=== PATIENT | male | born 1970 | race Caucasian/White ===

== ENCOUNTER → 2023-07-24 15:43 | Outpatient (REF) | payer BC, SELFPAY | LOC: PAVMRI 15:43 | PROVIDERS: ATTENDING PHYSICIAN Orthopaedic Surgery Adult Reconstructive Orthopaedic Surgery; FAMILY PHYSICIAN Internal Medicine | DX: M16.12 Unilateral primary osteoarthritis, left hip (principal) | CPT/HCPCS: 73721 ==

== ENCOUNTER 2023-11-24 04:31 | Observation (INO) | payer BC, SELFPAY ==
[2023-11-23 23:54] VITALS: BMI 28.7
[2023-11-23 23:58] VITALS: BP 115/59
[2023-11-24] VITALS (33 sets, daily range): BP systolic 88–118; BP diastolic 61–80; BMI 29.2
--- NOTE | 2023-11-24 00:08 | ED.GENMED ---
History of Present Illness
<MERYL Prado - Last Filed: 11/24/23 02:33>
General
Chief Complaint: Musculo-Skeletal Complaint
Source: patient
Exam Limitations: none
Time Seen by Provider: 11/23/23 23:56
History of Present Illness
History of Present Illness:
This is a 53 year old male that is brought in by ambulance with c/o left hip dislocation. States that he was getting ready for bed and his hip popped out. States that this also happened yesterday and he sat down and it popped back in. State that
this happened 4 weeks ago but again it popped in on its own. States that he had surgery on this hip 7 weeks ago and before he left the hospital it had popped out. Denies any fever, chills, chest pain, SOB, abd pain, nausea, vomiting, diarrhea,
headache, dizziness, urinary burning
Past History
<MERYL Prado - Last Filed: 11/24/23 02:33>
Past History
ED Past Medical History: HTN
ED Past Surgical History: Orthopedic (Right leg tib/Fib fractures. Left hip replacement) and Other (Dental implants)
Social History
Tobacco: Non-smoker
Alcohol: Occasional
Personal:
Living: with family
Employment: Employed
Review of Systems
<MERYL Prado - Last Filed: 11/24/23 02:33>
Review of Systems
All Other Systems: ROS reviewed and negative except as documented in HPI and ROS
Constitutional: Reports no symptoms; Denies fever or chills
EENT: Reports no symptoms
Respiratory: Reports no symptoms; Denies cough or trouble breathing
Cardiac: Reports no symptoms; Denies chest pain
ABD/GI: Reports no symptoms; Denies abdominal pain, nausea, vomiting or diarrhea
: Reports no symptoms; Denies dysuria, frequency or urgency
Musculoskeletal: Reports joint pain (Left hip dislocation)
Skin: Reports no symptoms
Neurological: Reports no symptoms; Denies dizzy or headache
Psychiatric: Reports no symptoms
Phy Exam
<MERYL Prado - Last Filed: 11/24/23 02:33>
General Physical Exam
General Presentation: moderate distress
General age: appears stated age
General Skin: warm and dry
General Habitus: normal
General Mental: alert
General Hydration: appears well hydrated
ENT Exam
ENT Exam: TM's normal, pharynx normal and neck supple
Eye Exam
Eye Exam: EOMI
Cardiovascular Exam
Cardiovascular Exam: regular rate/rhythm, no edema, no murmur and normal peripheral pulses
Pulmonary Exam
Pulmonary Exam: lungs clear, no respiratory distress, no rales, chest non tender, no crackles, no rhonchi, no wheezing and no cough
Gastrointestinal Exam
Gastrointestinal Exam: normal bowel sounds, non tender, soft, no organomegaly, no pulsatile mass and non distended
Musculoskeletal Exam
Musculoskeletal Exam: no edema and other (Left leg externally rotated. obvious dislocation)
Skin Exam
Skin Exam: normal color, warm/dry, no rash and no petechia
Psychiatric Exam
Psychiatric Exam: normal mood/affect
Course
<MERYL Prado - Last Filed: 11/24/23 02:33>
Orders/Labs/Results
Orders:
Orders
11/24/23 00:03
Comprehensive Metabolic Panel Urgent
11/24/23 00:05
Complete Blood Count/With Diff Urgent
HYDROmorphone [Dilaudid] 1 mg .ROUTE .STK-MED ONE
11/24/23 00:07
Hip, Left 1 View [CR Hip - LT without Pel 1 Vw] Urgent
Comment:
Reason For Exam: Hip dislocation
11/24/23 00:08
Propofol [Diprivan] 20 ml .ROUTE .STK-MED
11/24/23 00:09
Type+Screen Urgent
11/24/23 00:13
Fentanyl Citrate/Pf [Sublimaze] 100 mcg .ROUTE .STK-MED ONE
11/24/23 00:14
Fentanyl Citrate/Pf [Sublimaze] 100 mcg IV NOW STA
11/24/23 00:28
Hip, Left 1 View [CR Hip - LT without Pel 1 Vw] Urgent
Comment:
Reason For Exam: post reduction
11/24/23 00:42
ABO2 Urgent
BBK Wristband Number:
Associate notified that ABO2 has been ordered: [id number]
Date: 11/24/23
Time: 00:18
Jointer Machine ID: [id number]
11/24/23 00:48
Hip, Left 2-3 Views [CR Hip - LT w/wo Pel 2-3 Vw*] Urgent
Comment:
Reason For Exam: Hip pain
Include a pelvis x-ray?: No
11/24/23 01:13
ASA Classification Routine
Propofol [Diprivan] 200 mg IV NOW STA
11/24/23 01:14
Propofol [Diprivan] 20 ml .ROUTE .STK-MED
11/24/23 01:32
Hip, Left 1 View [CR Hip - LT without Pel 1 Vw] Urgent
Comment:
Reason For Exam: post reduction
Abnormal Lab Results
11/24/23 11/24/23
00:03 00:05
RBC 4.21 L 10^6/uL
(4.70-6.10)
Hct 38.4 L %
(39.0-52.0)
MCH 31.6 H pg
(27.0-31.0)
BUN 34 H mg/dl
(9-20)
Glucose 125 H mg/dl
(70-99)
Total Bilirubin 1.6 H mg/dl
(0.2-1.3)
11/24/23 00:05
11/24/23 00:03
Dehydration. Glucose nonfasting. total flavio slightly elevated.
Vital Signs
Initial and Last Documented VS:
Initial Vital Signs
Temp Pulse Resp BP Pulse Ox
98.1 F 96 23 115/59 98
11/23/23 23:58 11/23/23 23:58 11/23/23 23:58 11/23/23 23:58 11/23/23 23:58
Last Documented Vital Signs
Temp Pulse Resp BP Pulse Ox
98.0 F 97 16 93/61 97
11/24/23 01:40 11/24/23 01:40 11/24/23 01:40 11/24/23 01:40 11/24/23 01:40
Joãolt;Edgar Porras DO - Last Filed: 11/24/23 01:55>
Orders/Labs/Results
Orders:
Orders
11/24/23 00:03
Comprehensive Metabolic Panel Urgent
11/24/23 00:05
Complete Blood Count/With Diff Urgent
HYDROmorphone [Dilaudid] 1 mg .ROUTE .STK-MED ONE
11/24/23 00:07
Hip, Left 1 View [CR Hip - LT without Pel 1 Vw] Urgent
Comment:
Reason For Exam: Hip dislocation
11/24/23 00:08
Propofol [Diprivan] 20 ml .ROUTE .STK-MED
11/24/23 00:09
Type+Screen Urgent
11/24/23 00:13
Fentanyl Citrate/Pf [Sublimaze] 100 mcg .ROUTE .STK-MED ONE
11/24/23 00:14
Fentanyl Citrate/Pf [Sublimaze] 100 mcg IV NOW STA
11/24/23 00:28
Hip, Left 1 View [CR Hip - LT without Pel 1 Vw] Urgent
Comment:
Reason For Exam: post reduction
11/24/23 00:42
ABO2 Urgent
BBK Wristband Number:
Associate notified that ABO2 has been ordered: [id number]
Date: 11/24/23
Time: 00:18
Jointer Machine ID: [id number]
11/24/23 00:48
Hip, Left 2-3 Views [CR Hip - LT w/wo Pel 2-3 Vw*] Urgent
Comment:
Reason For Exam: Hip pain
Include a pelvis x-ray?: No
11/24/23 01:13
ASA Classification Routine
Propofol [Diprivan] 200 mg IV NOW STA
11/24/23 01:14
Propofol [Diprivan] 20 ml .ROUTE .STK-MED
11/24/23 01:32
Hip, Left 1 View [CR Hip - LT without Pel 1 Vw] Urgent
Comment:
Reason For Exam: post reduction
Abnormal Lab Results
11/24/23 11/24/23
00:03 00:05
RBC 4.21 L 10^6/uL
(4.70-6.10)
Hct 38.4 L %
(39.0-52.0)
MCH 31.6 H pg
(27.0-31.0)
BUN 34 H mg/dl
(9-20)
Glucose 125 H mg/dl
(70-99)
Total Bilirubin 1.6 H mg/dl
(0.2-1.3)
11/24/23 00:05
11/24/23 00:03
Vital Signs
Initial and Last Documented VS:
Initial Vital Signs
Temp Pulse Resp BP Pulse Ox
98.1 F 96 23 115/59 98
11/23/23 23:58 11/23/23 23:58 11/23/23 23:58 11/23/23 23:58 11/23/23 23:58
Last Documented Vital Signs
Temp Pulse Resp BP Pulse Ox
98.0 F 97 16 93/61 97
11/24/23 01:40 11/24/23 01:40 11/24/23 01:40 11/24/23 01:40 11/24/23 01:40
Procedures
<MERYL Prado - Last Filed: 11/24/23 02:33>
Moderate Sedation
ASA Risk Score: Class I
Chart and allergies reviewed: Yes
Consent for anesthesia obtained: Yes
Time out completed (validating right patient & procedure): Yes
Moderate Sedation Start Time(when first medication is given): 00:24
History of difficult intubation: No
Airway free of obstruction: Yes
Patient has a gag reflex: Yes
Patient is able to open mouth: Yes
Patient has no dentures: No
Patient has no loose teeth: No
Medication administered by Provider during Moderate Sedation: IV Propofol (mg)
Total dose administered: 140
Time drug administered: 00:25
Moderate Sedation Procedure End Time: 00:40
<MERYL Prado - Last Filed: 11/24/23 02:33>
MDM/Problems Addressed
Differential Diagnosis Includes:
Left hip dislocation
MDM/Problems Addressed:
This is a 53 year old male that comes in by ambulance with c/o left hip pain. States that he has surgery 7 weeks ago in [place] and the left hip has popped out several times and has popped back in on its own. This time it did not pop back in.
Dr. Porras with patient and will do conscious sedation. Consent signed.
Patient tolerate procedure well.Left hip was reduced and prostheses is in proper position. Patient to follow up with his surgeon in [place]. Knee immobilizer applied.
Patient continued to c/o discomfort. Sent over for Further x-rays. It remains displaced and appears superior to cup. Will attempt reduction again.
Moderate sedation started at 01:21 and Time out completed. First dose of mediation given at 01:22 of Propofol 100mg. Then at 01:24 patient given 40mg more and at 1:26 again another 40mg. At 01:28 patient was given 60mg more. at that time Prosthesis
went in. Repeat X-ray shows reduction is completed. End time is 1:40am.
Patient is unable to lift his leg off the bed. Patient has good pulses with normal capillary refill. Patient is moving his foot without difficulty. Will admit for further evaluation. Hospitalist notified.
Chronic conditions affecting care:
Left hip replacement
Acute Exacerbation and/or Progression of Chronic Illness:
Left hip Replacement
<MERYL Prado - Last Filed: 11/24/23 02:33>
*Radiology
Radiology exam reviewed: preliminary read by ED provider (Left hip= left hip dislocation. Left hip- dislocation reduced. Left hip 4 views- Prosthesis remains out. Repeat left hip- dislocation reduced. )
*Pulse Oximetry
Patient hypoxic: no
*EKG
Interpreted by ED Provider?: NA
Rate: EKG- N/A
*Critical Care Note
Total Time (30-74mins, 75-104mins- exclusive of procedures): Not Applicable
ED Attending Note
<MERYL Prado - Last Filed: 11/24/23 02:33>
-
Portions of this chart may have been created with voice recognition software.� Occasional wrong word or��sound alike� substitutions may have occurred due to the inherent limitations of voice recognition software.
<Edgar Porras DO - Last Filed: 11/24/23 01:55>
ED Attending Note
Patient seen and examined by attending physician: Yes
I performed a history and physical exam of patient and discussed management with resident, I reviewed resident's note and agree with documented findings and plan of care.: Yes
ED Attending Note:
I agree with Adina's note
Patient was getting into bed when he felt his left hip come out of place. Patient recently had his left hip replaced at the [facility] in [place]. Surgery occurred about 7 weeks ago. Patient states that in the perioperative
period he had a hip dislocation that was reduced. Since that time he has had. He felt like his hip was going out but popped back in.
General: Awake, Alert, Oriented X3. Uncomfortable due to left hip pain
Vitals: unremarkable
Head: Atraumatic
Eyes: Pupils equal, EOMI
Throat: Airway intact, no exudates, Mallampati score of 2
Neck: Trachea midline
Lungs: Clear and equal b/l
Heart: Regular rate, no murmurs
Neuro: Nonfocal
Skin: Warm, dry, no rash
Extremities: Left leg shortened, externally rotated, pulses equal b/l, no edema
Patient consented for procedural sedation and joint reduction. First attempted joint reduction resulted in the sensation of the hip moving into the joint with what appears to be anatomical positioning of the feet and ankles. Post reduction x-ray
showed better placement but was not convinced the hip position. Once the patient woke up he continued to have pain. He was sent for further views which demonstrated the hip was still dislocated. Patient sedated a second time and ultimately able
to feel a very satisfying clunk over the hip reducing. Repeat films were definitive. The joint was reduced. Given the frequent problems the patient is having with his left hip recommend he contact the surgeon tomorrow to discuss next steps. Will
discharge him in a knee immobilizer.
Discharge Plan
Departure
Patient Disposition: Admit
Date of Disposition: 11/24/23
Time of Disposition: 02:24
Admit to: Med/Surg
Presentation/result/management discussed w/ accepting MD/DO: Hospitalist
Patient with high blood pressure during this ER visit?: No
Condition: Good
Covid-19: Not Applicable
Discharge Problem:
S/P closed reduction of dislocated total hip prosthesis, Ambulatory dysfunction
Prescriptions:
No Action
labetalol 100 MG tablet
200 mg PO BID Qty: 30 0RF
Referrals:
Vamsi Roper MD [Family Provider] -
Interventions
Interventions:
*Risk Screen - Suicide Last Done: 11/23/23 23:55
*General Assessment Last Done: 11/23/23 23:55
*Neglect/Abuse Screening Last Done: 11/23/23 23:55
*ED COVID-19 Vaccine History Last Done: 11/23/23 23:55
Discharge Date and Time
Print Language: CHINESE
[2023-11-24] MEDS: SUBLIMAZE 100 MCG IV (00:14)
[2023-11-24 00:20] LABS: % Basophils 0.8 % (0-2); % Immature Granulocytes 0.3 % (0-0.5); % Lymphocytes 20.6 % (20.5-51.1); % Monocytes 6.7 % (1.7-9.3); % Neutrophils 69.6 % (42.2-75.2); Absolute Basophils 0.1 10^3/uL (0-0.2); Absolute Eosinophils 0.2 10^3/uL (0-0.7); Absolute Lymphocytes 1.6 10^3/uL (1.2-3.4); Absolute Monocytes 0.5 10^3/uL (0.1-0.6); Absolute Neutrophils 5.3 10^3/uL (1.4-6.5); Hematocrit 38.4 % (39.0-52.0); Hemoglobin 13.3 g/dL (13.0-18.0); Mean Corp Hgb Conc. 34.6 g/dL (33.0-37.0); Mean Corpuscular Hgb 31.6 pg (27.0-31.0); Mean Corpuscular Volume 91.2 fL (80.0-94.0); Mean Platelet Volume 9.5 fL (7.4-10.4); Nucleated Red Blood Cells % 0 % (-); Platelet Count 229 10^3/uL (130-400); Red Blood Cell Count 4.21 10^6/uL (4.70-6.10); Red Cell Dist. Width 13.5 % (11.5-14.5); White Blood Cell Count 7.7 10^3/uL (4.8-10.8)
[2023-11-24 00:31] LABS: ALT (SGPT) 21 U/L (0-50); AST (SGOT) 22 U/L (17-59); Albumin 4.3 g/dl (3.5-5.0); Alkaline Phosphatase 76 U/L (38-126); Blood Urea Nitrogen 34 mg/dl (9-20); Calcium 9.2 mg/dl (8.4-10.2); Carbon Dioxide 24 mmol/L (22-30); Chloride 105 mmol/L (98-107); Estimated Creatinine Clearance 101 ml/min; Glucose 125 mg/dl (70-99); Potassium 3.8 mmol/L (3.5-5.1); Sodium 141 mmol/L (135-145); Total Bilirubin 1.6 mg/dl (0.2-1.3); Total Protein 6.4 g/dl (6.3-8.2); eGFR > 60.00
--- NOTE | 2023-11-24 02:56 | HPS.HSE ---
Addendum entered and electronically signed by Clara Perez MD 11/24/23 06:15:
discussed case with ortho, Dr. Spencer who will see later today
OK to give diet and order PT
Addendum entered and electronically signed by Clara Perez MD 11/24/23 03:47:
patient reports some low back pain that occurred with dislocation, given fentanyl by EMS. Currently has pain in low back and knee.
No saddle anesthesia. no weakness RLE.
Original Note:
Family Physician
-
Family Physician: Vamsi Roper
Chief Complaint
-
left hip dislocation
History of Present Illness
Mr. Sudhir Escamilla is a 53 yo man with hx left hip replacement 7 weeks ago in [place] with several episodes of left hip dislocation since presents with recurrent left hip dislocation this evening.
Patient states his hip first dislocated 8 days post surgery and popped back in. This then happened 2 more times including yesterday and hip popped back in by sitting down. Today he was walking and dislocation recurred but did not go back in so he
came here to the ER. While in the ER hip required two attempts at reduction, successful second time. However post reduction, patient feels that he cannot flex his hip. He has pain at hip and knee but also feels that it is too tight to lift.
He has had new knee pain since post surgery. Per patient, his surgeon believes this is because of tightness of his IT band.
No fevers/chill. No headache. No chest pain or shortness of breath. No nausea/vomiting. No LE swelling.
Medical History
Past Medical History
Past Medical History: Reports HTN
Past Surgical History: Reports Orthopedic and Other (left hip replacement 7 weeks ago)
Social History
Tobacco: Non-smoker
Alcohol: Occasional
Family History
Family History: Not pertinent
Allergies / Home Medications
Allergies reflects when Allergies were last updated in [facility].
Home Medications with original date entered in [facility]
Allergy/Medication List:
Allergies
Allergy/AdvReac Type Severity Reaction Status Date / Time
No Known Allergies Allergy Verified 11/23/23 23:55
Home Medications
allopurinol 100 mg tablet 100 mg PO DAILY 11/24/23
hvxayoymnc-tnvfnrlyb-sgnfacqos 40 mg 11/24/23
semaglutide (weight loss) 0.25 mg/0.5 mL subcutaneous pen injector 0.25 mg SC QWEEK 11/24/23
Odpzjtfren-Gaymjgbpfv-ITWM 40-10-25mg
Review of Systems
-
History Source: Patient
A 12 point ROS was completed and negative except as noted: Yes
Physical Exam
Vital Signs
Vital Signs
Temp Pulse Resp BP Pulse Ox
98.0 F 97 16 93/61 97
11/24/23 01:40 11/24/23 01:40 11/24/23 01:40 11/24/23 01:40 11/24/23 01:40
Physical Exam
General: No Apparent Distress
HEENT: PERRLA
Respiratory: Clear; No Wheezes
Cardiac: S1/S2 and Regular Rhythm
GI: Soft and Non Tender
Musculoskeletal: Other (left knee brace in place)
Skin: Warm and Dry; No Rash
Neuro: AO x 3 and Other (5/5 strength toe dorsiflexion and plantar flexion; cannot flex left hip; can tolerate passive flexion )
Psych: Calm
Laboratory Results
-
11/24/23 00:05
11/24/23 00:03
Laboratory Results
Total Bilirubin 1.6 mg/dl (0.2-1.3) H 11/24/23 00:03
AST 22 U/L (17-59) 11/24/23 00:03
ALT 21 U/L (0-50) 11/24/23 00:03
Alkaline Phosphatase 76 U/L (38-126) 11/24/23 00:03
Data Reviewed
-
Diagnostic Radiology: Report Reviewed by me
Lab Data: Labs Reviewed by me
Impression/Plan
-
Mr. Sudhir Escamilla is a 53 yo man with hx left hip replacement 7 weeks ago in [place] with several episodes of left hip dislocation since (immediately post-op, 4 weeks ago and yesterday) presents with recurrent left hip dislocation this evening.
Triage VS: T 98.1, P 96, RR 23, BP 115/59, SpO2 98%
LABS: WBC 7.7, Hg 13.3, PLT 229, Na 141, K+ 3.8, BUN 34, Cr 0.8, Glucose 125
Patient underwent conscious sedation in the ER with attempt at reduction x 2, repeat x-ray post second time shows reduction is complete. Post reduction patient was unable to lift his leg off the bed and therefore asked medicine to admit.
Left Hip Dislocation
Left Hip Replacement 7 weeks ago in [place]
-s/p reduction in the ER but now with immobility of left hip following 2/2 muscle sprain post procedure?
-admit to observation
-ice packs
-formal Ortho consult in AM
-will keep NPO for now
-PT/OT after clearance by ortho
Essential Hypertension
-patient takes Olmesartan 40mg - Amlodipine 10mg - HCTZ 25mg combo pill at home
-current BP low 100's post sedation, hold home meds for now
-will resume each medication based on AM pressures
GOUT
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
Patient is on Semaglutide for weight loss
DVT PPx SCD
FULL CODE
[2023-11-24 03:51] LABS: Direct Bilirubin 0.5 mg/dl (0.0-0.4)
--- NOTE | 2023-11-24 04:30 | PTCARENOTE ---
Pt arrived to [facility] from ED at 04:30 on a stretcher and walked to bed. Pt has immobilizer on leg and scar on Left hip from a left hip replacement 7 weeks ago done in [place]. Ice applied to pt Left hip. Pt states they are pain free at this time. Full
head to toe assessment complete. Pt AAxOx3 and VSS. Will continue to monitor.
[2023-11-24] MEDS: NSS 1000 IV (05:07)
[2023-11-24 06:36] LABS: % Basophils 0.6 % (0-2); % Eosinophils 0.6 % (0-6); % Immature Granulocytes 0.4 % (0-0.5); % Lymphocytes 15.1 % (20.5-51.1); % Neutrophils 77.3 % (42.2-75.2); Absolute Lymphocytes 1.1 10^3/uL (1.2-3.4); Absolute Monocytes 0.4 10^3/uL (0.1-0.6); Absolute Neutrophils 5.5 10^3/uL (1.4-6.5); Hemoglobin 12.2 g/dL (13.0-18.0); Mean Corp Hgb Conc. 34.9 g/dL (33.0-37.0); Mean Corpuscular Volume 88.8 fL (80.0-94.0); Mean Platelet Volume 9.5 fL (7.4-10.4); Nucleated Red Blood Cells % 0 % (-); Platelet Count 239 10^3/uL (130-400); Red Blood Cell Count 3.94 10^6/uL (4.70-6.10); Red Cell Dist. Width 13.4 % (11.5-14.5)
[2023-11-24 07:06] LABS: Blood Urea Nitrogen 27 mg/dl (9-20); Calcium 8.8 mg/dl (8.4-10.2); Carbon Dioxide 26 mmol/L (22-30); Chloride 106 mmol/L (98-107); Estimated Creatinine Clearance 98 ml/min; Glucose 90 mg/dl (70-99); Magnesium 1.9 mg/dl (1.6-2.3); Potassium 3.6 mmol/L (3.5-5.1); Sodium 142 mmol/L (135-145); eGFR > 60.00
[2023-11-24] MEDS: ZYLOPRIM 100 MG PO (07:28)
--- NOTE | 2023-11-24 08:30 | W.PN.HOSP.TC ---
Addendum entered and electronically signed by Aramis Hinojosa MD 11/24/23 15:38:
Attending Addendum-
I saw and evaluated the patient. I reviewed the resident�s note and agree with findings and plan as documented in the resident�s note. Patient feels much improved. Wants to go home. Denies pain in left hip. Full 12 point ROS reviewed and negative
except as documented Exam: Vitals reviewed GEN nad heart RRR lungs clear abd soft Left hip incision healed no bruising, left knee in immobilizer pulses intact
#Left Hip Dislocation
Left Hip Replacement 7 weeks ago in [place]
-s/p reduction in the ER
-cont knee immobilizer
-pain control
-ice packs
-PT/OT cleared by ortho DC home
#Essential Hypertension
-patient takes Olmesartan 40mg - Amlodipine 10mg - HCTZ 25mg combo pill at home
-cont home meds as OP
GOUT
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
Patient is on Semaglutide for weight loss
DVT PPx SCD
FULL CODE
Dispo DC HOME
Time spent coordinating care, review of plan of care with resident, DC planning, transition of care, review of records, med rec, consults, notes, labs, rads, d/w nursing ortho� 35 mins
Original Note:
Today's Communication/Plan
-
PT/OT evaluation w/ posterior/hip precautions. No planned orthopedic intervention. Follow up with surgeon of record & continue with Knee Immobilization.
Assessment / Plan
Assessment / Plan
53 yo man with hx left hip replacement 7 weeks ago in [place] with several episodes of left hip dislocation since presents with recurrent left hip dislocation & pain
#Ambulatory Dysfunction secondary to prosthetic hip dislocation
- 7 weeks s/p hip replacement surgery
- several incidents of hip dislocation with spontaneous resolution
- Hip XR demonstrates dislocated prosthetic hip joint w/ successful reduction
- No planned intervention per Orthopedics
- Pain minimal/none. Has not needed Tylenol
- PT/OT to evaluate
- Likely discharge today, follow up with OP Surgeon in [place]
#Knee Pain, likely sequela from Hip dislocation
- musculoskeletal in nature; can be caused by IT band tightness as a consequence of hip dislocation
- continue with Knee Immobilization
- PT/OT
- Likely discharge today, follow up with OP Surgeon in [place]
#HTN
- Stable.
#Gout
- Stable
Dispo:
DVT PPx: None
Diet: Regular
Code Status: Full Code
Anticipated Discharge: Today
Subjective/Interval History
-
Feeling well in the AM. Has not needed pain medication. Is able to walk without pain. Has no pain at rest. He has no numbness, tingling, or swelling of the L leg. His only concern is muscle weakness of the hip.
Objective Data
-
Labs:
Laboratory Results
11/24/23 11/24/23 11/24/23
00:03 00:05 06:18
WBC 7.7 7.0
Hgb 13.3 12.2 L
Hct 38.4 L 35.0 L
Plt Count 229 239
Sodium 141 142
Potassium 3.8 3.6
Chloride 105 106
Carbon Dioxide 24 26
BUN 34 H 27 H
Creatinine 0.8 0.8
Glucose 125 H 90
Calcium 9.2 8.8
Total Bilirubin 1.6 H
AST 22
ALT 21
Alkaline Phosphatase 76
Vital Signs:
Vital Signs
Temp Pulse Resp BP Pulse Ox
98.7 F 77 16 112/69 96
11/24/23 07:00 11/24/23 07:00 11/24/23 07:00 11/24/23 07:00 11/24/23 07:00
I&O
11/23/23 11/24/23 11/25/23
06:59 06:59 06:59
Intake Total 480 / 480
Balance 480 / 480
Review of Systems
-
History Source: Patient
All other systems: Reviewed and negative
Constitutional: Reports No Symptoms
EENT: Reports No Symptoms Reported
Respiratory: Reports No Symptoms
Cardiac: Reports No Symptoms
Abdomen/GI: Reports No Symptoms
Breast: Reports N/A
Genitourinary: Reports No Symptoms
Musculoskeletal: Reports Muscle Weakness
Skin: Reports No Symptoms
Neuro: Reports No Symptoms
Endocrine: Reports No Symptoms
Physical Exam
-
General: Well Developed, Well Nourished and No Apparent Distress
HEENT: Normocephalic, Atraumatic, Moist Mucous Membranes, [place] Conjunctivae and PERRLA
Respiratory: Clear to Auscultation
Cardiac: Regular Rhythm and S1/S2
Breast: N/A
GI: Soft, Nontender, Nondistended and Normal Bowel Sounds
Musculoskeletal: No Clubbing, No Cyanosis, No Edema and Other (L Hip joint is non-tender, non-swollen. Muscle strength is 3/5 on the L hip, with full passive ROM & limited active ROM. Neurovascularly intact in the LLE. )
Skin: Warm and Dry
Neuro: Awake, Alert, Oriented and AO x 3
--- NOTE | 2023-11-24 13:20 | W.PN.UPDATE ---
Update Note
Progress Note Update
Chart reviewed. No planned orthopedic intervention
WBAT LLE
PT/OT- maintain posterior hip precautions
Would continued KI for now until follow up with his surgeon of record.
Will see later today, but OK to proceed with PT prior to my evaluation
Please reach out with questions or concerns.
--- NOTE | 2023-11-24 14:21 | W.DCSUMMARY ---
Addendum entered and electronically signed by Aramis Hinojosa MD 11/24/23 22:19:
Read, reviewed, and agree. See same day progress note for additional details.
Elmer Hinojosa MD
Original Note:
Documented by User: Lars Rhodes MD, Resident 11/24/23 17:24
Discharge Summary
Discharge Data
Date of Admission: 11/24/23
Date of Discharge: 11/24/23
-
Pending Results: No
Hospital Course
Discharging Physician : Dr. Lars Rhodes, Dr. Aramis Hinojosa
Disposition : Home
Primary care physician : Unknown
Principal Discharge diagnosis :
Chronic Discharge diagnosis :
Hospital Course :
53 yo man with hx left hip replacement 7 weeks ago in [place] with several episodes of left hip dislocation and presented to the ED with recurrent left hip dislocation & pain. While in the ER, his hip required two attempts at reduction, which was
successful the second time. However post reduction, patient feels that he cannot flex his hip. He has pain at hip and knee but also feels that it is too tight to lift. He was also experiencing left knee pain, for which he was given a brace. He was
admitted over night on observation and orthopedics was consulted to evaluate the patient for potential intervention.
In the AM of hospital Day 1 the patient was seen and was experiencing little to no pain at that time. Physical exam was unremarkable and he had no acute issues at this time. An orthopedic surgeon saw and evaluated the patient and judged that no
intervention was necessary at this time following the reduction of the patient's prosthetic hip. Several recommendations were given to the patient for surgeons in the local are with whom he could follow up, though it was suggested that he return to
follow up with the surgeon who initially performed the left hip replacement surgery. 3 X-rays of the hip were ordered by the orthopedic surgeon so that the patient could take them with him for a follow-up appointment.
He was discharged home on hospital day 1.
Important imaging findings :
CR Hip - LT without Pel 1 Vw:
Single frontal projection shows left total hip replacement without abnormal periprosthetic lucency. There is dislocation with small amount of superior translation of the femoral portion of the prosthesis with respect to the acetabular cup. No
fracture identified.
CR Hip - LT without Pel 1 Vw:
Single frontal projection is somewhat limited secondary to angulation but shows apparent persistent dislocation. No other significant change.
CR Hip - LT w/wo Pel 2-3 Vw:
Total hip replacement as seen prior with persistent dislocation and superior migration of the proximal femur with respect to the acetabulum. No fracture.
CR Hip - LT without Pel 1 Vw:
There is now normal alignment of the left total hip replacement post reduction on frontal projection. No fracture or abnormal focal lesions. No radiopaque foreign body or soft tissue abnormality.
CR Hip - LT w/wo Pel 2-3 Vw:
There is left total hip replacement in satisfactory position with no evidence of fracture or loosening.
There has been satisfactory reduction of the dislocation present on the prior study.
Discharge Plan
-
Patient Disposition: Home (Routine Discharge)
Discharge Diagnosis/Procedures: Ambulatory Dysfunction, Post Prosthetic Hip Dislocation
Condition: Good
Diet: No restrictions
Activity: No restrictions
Driving Restrictions: As prior to admission
Bathing Restrictions: None
Referrals:
Vamsi Roper MD [Family Provider] -
Prescriptions:
Continued
wjwmhoffzp-cggtdbouh-ghixeiqdc tablet
40 mg
Rx Instructions:
40-10-25mg
allopurinol 100 mg Tablet
100 mg PO DAILY
semaglutide (weight loss) 0.25 mg/0.5 mL Pen Injector
0.25 mg SC QWEEK
Discharge Orders:
Discharge Patient (As Directed); Ordered 11/24/23
Ordered By: Lars Rhodes
Discharge Date and Time
Discharge Date/Time: 11/24/23 17:36
Print Language: ROMANSH

Documented by User: Aramis Hinojosa MD 11/24/23 22:18
Discharge Summary
Discharge Data
Date of Admission: 11/24/23
Date of Discharge: 11/24/23
Discharge Plan
-
Patient Disposition: Home (Routine Discharge)
Discharge Diagnosis/Procedures: Ambulatory Dysfunction, Post Prosthetic Hip Dislocation
Condition: Good
Diet: No restrictions
Activity: No restrictions
Driving Restrictions: As prior to admission
Bathing Restrictions: None
Referrals:
Vamsi Roper MD [Family Provider] -
Prescriptions:
Continued
haoucktzbv-expbocszj-zenduepea tablet
40 mg
Rx Instructions:
40-10-25mg
allopurinol 100 mg Tablet
100 mg PO DAILY
semaglutide (weight loss) 0.25 mg/0.5 mL Pen Injector
0.25 mg SC QWEEK
Discharge Orders:
Discharge Patient (As Directed); Ordered 11/24/23
Ordered By: Lars Rhodes
Discharge Date and Time
Discharge Date/Time: 11/24/23 17:36
Print Language: ROMANSH
--- NOTE | 2023-11-24 15:29 | CON.ORTHO ---
Consultation - Orthopedics
History
HPI: 53-year-old male presenting to the emergency department with complaints of left hip pain and inability to bear weight. He was diagnosed with a left prosthetic hip dislocation. He required sedation emergency department close reduction. He was
admitted to the hospital service for ambulatory dysfunction orthopedics is consulted. 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
He reports several episodes since the surgery of what he describes as subluxations of the left hip. Denies any jonny dislocations that required emergency room visit or reduction maneuver. He was seen by his surgeon a week ago who recommended
continuing his hip precautions for an additional 6 weeks. He reports that he was at home yesterday evening when he was simply walking and felt like he might of turned funny and felt his hip dislocate. Denies bending or squatting or placing his hip
in a provocative position. He was unable to reduce his hip and this prompted his trip to the emergency department.
Allergies / Home Medications
Past medical history: Hypertension
Past surgical history: Right lower extremity fracture surgery, left total hip arthroplasty, dental implants
Social history: Non-smoker, , lives at home with his family
Family history: Not pertinent
Allergy/AdvReac Type Severity Reaction Status Date / Time
No Known Allergies Allergy Verified 11/23/23 23:55
�Medication �Instructions �Recorded
allopurinol 100 mg tablet 100 mg PO DAILY 11/24/23
roxdwduiho-gtpbzeenm-ithepnidn 40 mg 11/24/23
semaglutide (weight loss) 0.25 0.25 mg SC QWEEK 11/24/23
mg/0.5 mL subcutaneous pen injector
Vital Signs / Lab Results
Temp Pulse Resp BP Pulse Ox
98.7 F 77 16 112/69 96
11/24/23 07:00 11/24/23 07:00 11/24/23 07:00 11/24/23 07:00 11/24/23 07:00
11/24/23 06:18
11/24/23 06:18
10 point review systems reviewed and negative unless otherwise stated
General: Pleasant, no acute distress seated comfortably in chair
Musculoskeletal left lower extremity
Well-healed posterior hip surgical incision
Range of motion testing deferred
Knee immobilizer in place
Positive EHL, FHL, ankle dysphagia complaint of flexion
No gross motor or sensory deficits distally
Leg lengths approximately equal
Distal extremity warm and pink
Diagnostic studies
X-rays taken Emergency Department only AP projections show evidence of successful closed reduction of left prosthetic hip dislocation. No periprosthetic fractures lucency or gross subsidence noted
Assessment / Plan
53-year-old male now 7 weeks status post left total hip arthroplasty outside institution status post successful closed reduction left total hip arthroplasty. I had a long detailed discussion the patient regarding diagnosis and treatment options.
He reports no pain this afternoon and has been able to ambulate without difficulty working with physical therapy. Would really recommend that he follow-up with his treating surgeon at [facility] to discuss continuing conservative
treatment potentially to include abduction bracing, continued hip precautions, knee immobilizer versus obtaining further imaging potentially CT scan to evaluate for component positioning. We did discuss several providers in the area that he could
potentially follow-up with his well if he like to stay closer to home. I do think however that following up with his treating surgeon would be advisable since he is this close to his index procedure. I would recommend maintaining the knee
immobilizer to prevent placing his hip in a provocative position until follow-up with the surgeon. I did order x-rays of the left hip 3 views to evaluate orthogonal imagingfor completeness and he would like to have this performed to take with him
for follow-up. Patient voiced understand agreement's plan.
--- NOTE | 2023-11-24 15:37 | PTOTSP ---
The patient was independent with ambulation and elevations, offering no concerns regarding mobility upon return home. Patient verbalized good understanding of hip precautions, how to use dressing equipment, etc. Patient more so concerned about how
to avoid dislocating his hip again since he was not breaking hip precautions the times he did dislocate. No PT needs identified at this time, will sign off.
--- NOTE | 2023-11-24 15:45 | CM ---
Met with patient and at bedside; initial assessment completed
Admitted with left hip dislocation; s/p closed reduction
Pharmacy verified: [facility] @ [id number] [facility], [place], [place]
Patient and live in a [place] w/basement; 5 steps to enter home; 12 steps down to basement; Railings present; Bath has walk-in shower
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
DME: none
NO SNF or Home Health utilization history
will transport home
Will discharge to home after x-rays completed
Going home with left knee immobilizer
No skilled PT needed
Plan: discharge to home; no services. Will follow up with surgeon of record in [place] who performed surgery
== END 2023-11-24 17:36 | disposition home or self-care (01) ==
LOC: 2 SOUTH 04:31
PROVIDERS: Clinical Nurse Specialist Family Health; ADMITTING PHYSICIAN Student in an Organized Health Care Education/Training Program; ATTENDING PHYSICIAN Family Medicine; CONSULT PHYSICIAN Orthopaedic Surgery; EMERGENCY PHYSICIAN Emergency Medicine; FAMILY PHYSICIAN Internal Medicine
DX: T84.021A Dislocation of internal left hip prosthesis, initial encounter (principal); Y83.1 Surgical operation with implant of artificial internal device as the cause of abnormal reaction of the patient, or of later complication, without mention of misadventure at the time of the procedure; Y92.9 Unspecified place or not applicable; Y79.2 Prosthetic and other implants, materials and accessory orthopedic devices associated with adverse incidents; Y93.01 Activity, walking, marching and hiking; I10 Essential (primary) hypertension; E86.0 Dehydration; M10.9 Gout, unspecified; M25.552 Pain in left hip; R26.2 Difficulty in walking, not elsewhere classified; M25.562 Pain in left knee; M54.50 Low back pain, unspecified; Z79.85 Long-term (current) use of injectable non-insulin antidiabetic drugs
CPT/HCPCS: 27265; 73501; 73502; 80048; 80053; 82248; 83735; 85025; 86850; 86900; 86901; 96374; 97161; 99152; 99285; G0378